=== PATIENT | female | born 1995 | race Caucasian/White ===

== ENCOUNTER 2017-04-11 10:33 | Emergency (ER) | payer MEDICAID ==
--- NOTE | 2017-04-11 11:13 | ED Physician Chart ---
ED Chief Complaint/HPI - Patient Information Date Seen:: 04/11/17 Time Seen:: 11:08 Chief Complaint:: Fever for 2 days, sore throat for 1 day History of Present Illness:: 21 yo female developed fever and chills for 2 days, Tmax 102, sore throat with difficulty swallowing for 1 day. Denies cough or chest pain. Allergies:: Allergies Allergy/AdvReac Type Severity Reaction Status Date / Time No Known Allergies Allergy Verified 04/11/17 10:42 Vitals:: Vital Signs - 8 hr 04/11/17 10:42 Temp 99.1 F HR 99 RR 16 BP 107/44 O2 Sat % 97 ED Review of Systems - Review of Systems General/Constitutional: Fever, Chills Skin: No skin lesions Head: No headache Eyes: No loss of vision ENT: No earache Neck: No neck pain Cardio Vascular: No chest pain Pulmonary: No SOB GI: No nausea, No vomiting G/U: No dysuria President Practicing Urologist: No vaginal discharge Musculoskeletal: No bone or joint pain Endocrine: No polyuria Psychiatric: No prior psych history Hematopoietic: No bruising Neurological: No focal symptoms ED Past Medical History - Past Medical History Past Medical History: Other (pyelonephritis) Family History: None Social History: Non Smoker, Alcohol (occasionally), No Drug Use Surgical History: other (4 wisdom teeth removed on 04/01/17 finished Amoxicillin 500mg bid for 7 days ) Psychiatricy History: None Family Medical History - Family Member Mother Hx Family Cancer: No Hx Family Hypertension: No Hx Family Stroke: No Hx Family Diabetes: No Hx Family Seizures: No Hx Family Dementia: No Hx Family HIV: No Hx Family COPD: No Hx Family Hepatitis: No Hx Family Psychiatric Problems: No ED Physical Exam - Physical Examination General/Constitutional: Well-developed, well-nourished Head: Atraumatic Eyes: Lids, conjuctiva normal Skin: No rash Other ENMT comments:: Bilateral tonsil erythematous with punctate purulent secretion and tenderness Other Neck comments:: Tender lymph nodes bilateral upper neck Respiratory: Clear to Auscultation, No Wheeze/Rhonchi/Rales Cardio Vascular: RRR, No murmur, gallop, rubs, NL S1 S2 GI: No tenderness/rebounding/guarding Extremities: Full ROM Neuro/Psych: No focal deficits Misc: Normal back ED Labs/Radiology/EKG Results - Lab Results Results: Rapid strep screen test negative ED Assessment - Assessment General Assessment: Tonsillitis Critical Care Time: 30 min Excludes all billable procedures: Yes This condition life threatening/high prob of deterioration: No Assessment/Comments:: CBC, BMP, rapid strep screen test, throat culture Lozenges PO q12h prn for pain Azithromycin 250mg Z-jose manuel ED Septic Shock - . Is Septic Shock (SBP<90, OR Lactate>4 mmol\L) present?: No - <6hrs of presentation: Vital Signs: Vital Signs - 8 hr 04/11/17 10:42 Temp 99.1 F HR 99 RR 16 BP 107/44 O2 Sat % 97 ED Reassessment (Disposition) - Reassessment Reassessment Condition:: Improved - Diagnosis Diagnosis:: Tonsillitis - Aftercare/Follow up Instructions Aftercare/Follow-Up Instructions:: Counseled pt regarding lab results/diagnosis & need follow up, Refer to Discharge Instructions - Patient Disposition Discharge/Transfer:: Home ED Discharge Plan - Patient Disposition Admit/Discharge/Transfer: PT DISCHARGED HOME Condition at Disposition: Stable Prescriptions: Azithromycin [Zithromax] 250 mg PO UD #6 tab Instructions: Tonsillitis, [id number] Forms: Work Release Form
[2017-04-11 11:26] LABS: % BASOPHILS 0.4 % (0.0-2.0); % EOSINOPHILS 0.6 % (0.0-5.0); % LYMPHOCYTES 26.5 % (20.0-50.0); % MONOCYTES 12.9 % (2.0-10.0); % NEUTROPHILS 59.6 % (40.0-80.0); HEMATOCRIT 40.7 % (41.0-60); HEMOGLOBIN 13.1 gm/dL (12-16); MEAN CORPUSCULAR HEMOGLOBIN 27.4 pg (27.0-31.0); MEAN CORPUSCULAR HGB CONC 32.2 pg (28.0-36.0); MEAN PLATELET VOLUME 7.9 fl; NEUTROPHILE ABSOLUTE 3.6 Th/cmm (1.8-8.0); PLATELET COUNT 295 Th/cmm (150-400); RED BLOOD COUNT 4.79 Mil/cmm (3.80-5.10); RED CELL DISTRIBUTION WIDTH 13.5 % (11.5-20.0); WHITE BLOOD COUNT 5.8 Th/cmm (4.8-10.8)
[2017-04-11 12:38] LABS: BUN - UREA NITROGEN 6 mg/dL (7-25); BUN/CREATININE RATIO 8.6; CALCIUM SERUM 9.2 mg/dL (8.6-10.3); CHLORIDE 105 mEq/L (98-107); CREATININE - SERUM 0.7 mg/dL (0.6-1.2); GLUCOSE 98 mg/dL (70-105); SODIUM SERUM 139 mEq/L (136-145)
== END 2017-04-11 12:25 | disposition home or self-care (01) ==
LOC: ER 10:33
DX: J03.90 Acute tonsillitis, unspecified (principal)
CPT/HCPCS: 36415-UA; 80048-TC; 85025-TC; 87070-90; 87081-90; Z7502

== ENCOUNTER 2017-09-26 05:27 | Emergency (ER) | payer MEDICAID ==
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
== END 2017-09-26 06:40 | disposition home or self-care (01) ==
LOC: ER 05:27
DX: S39.012A Strain of muscle, fascia and tendon of lower back, initial encounter (principal); S29.012A Strain of muscle and tendon of back wall of thorax, initial encounter; X58.XXXA Exposure to other specified factors, initial encounter; Y93.9 Activity, unspecified; Y92.89 Other specified places as the place of occurrence of the external cause; Y99.8 Other external cause status
CPT/HCPCS: 99283; 96372; J1885; Z7502

== ENCOUNTER 2018-10-16 17:32 | Emergency (ER) | payer MEDICAID, OTHER ==
[2018-10-16 18:06] LABS: URINE SOURCE CLEAN C
[2018-10-16 18:11] LABS: URINE BILIRUBIN NEGATIVE (NEGATIVE); URINE BLOOD NEGATIVE (NEGATIVE); URINE GLUCOSE (UA) NEGATIVE (NEGATIVE); URINE KETONE NEGATIVE (NEGATIVE); URINE LEUKOCYTE ESTERASE NEGATIVE (NEGATIVE); URINE NITRATE NEGATIVE (NEGATIVE); URINE PROTEIN NEGATIVE (NEGATIVE); URINE UROBILINOGEN 0.2 E.U./dL (0.2 - 1.0)
[2018-10-16 18:12] LABS: URINE CLARITY CLEAR (CLEAR); URINE COLOR YELLOW; URINE MICROSCOPIC INDICATED? YES
[2018-10-16 18:16] LABS: URINE BACTERIA 2+ /hpf (NONE SEEN); URINE EPITHELIAL CELLS MODERATE /lpf (FEW); URINE RBC 0-2 /hpf (0-5)
[2018-10-16 18:17] LABS: AMPHETAMINE URINE NEGATIVE (NEGATIVE); BARBITURATES URINE NEGATIVE (NEGATIVE); COCAINE METABOLITE QUAL URINE NEGATIVE (NEGATIVE); METHADONE URINE NEGATIVE (NEGATIVE); METHAMPHETAMINES QUAL URINE NEGATIVE (NEGATIVE); OPIATES (MORPHINE) QUAL. URINE NEGATIVE (NEGATIVE); PHENCYCLIDINE (PCP) URINE NEGATIVE (NEGATIVE); TRICYCLICS (TCA) QUAL. URINE NEGATIVE (NEGATIVE)
[2018-10-16 18:18] LABS: BENZODIAZEPINES QUAL URINE NEGATIVE (NEGATIVE); CANNABINOID THC POSITIVE (NEGATIVE)
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
--- NOTE | 2018-10-17 09:23 | Diagnostic Imaging Report ---
Exam: CT examination lumbar cervical spine HISTORY: Back pain Total DLP equals 1057 CTDI equals 38.8 Findings: Multiple contiguous thin section of the lumbar cervical spine obtained in axial plane with coronal sagittal reconstruction technique. The study was performed without administration of contrast material. The study demonstrates vertebral bodies of normal height with preserved intervertebral disc spaces. The neural canal is intact. The pedicles are normal. No prevertebral soft tissue swelling is noted. There is no evidence of spondylolysis or spondylolisthesis. IMPRESSION: Essentially unremarkable examination of the lumbar sacral spine. If clinically indicated MRI examination might be helpful for further evaluation.
== END 2018-10-16 19:00 | disposition home or self-care (01) ==
LOC: ER 17:32
DX: S39.012A Strain of muscle, fascia and tendon of lower back, initial encounter (principal); X50.9XXA Other and unspecified overexertion or strenuous movements or postures, initial encounter; Y93.89 Activity, other specified; Y92.89 Other specified places as the place of occurrence of the external cause; Y99.0 Civilian activity done for income or pay
CPT/HCPCS: 72131-TC; 80307; 81001-TC; 81025-TC; 87086-90